=== PATIENT | female | born 1985 | race American Indian/Alaskan Native ===

== ENCOUNTER 2017-07-06 06:06 | Emergency (ER) | payer OTHER ==
[2017-07-06] MEDS ORDERED: FLEXERIL PO ONE (12:50)
[2017-07-06] MEDS ORDERED: NORCO 5/325 PO ONE (12:50)
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
[2017-07-06 17:49] VITALS: BP 120/76
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
== END 2017-07-06 17:13 | disposition home or self-care (01) ==
LOC: ED 06:06
DX: S16.1XXA Strain of muscle, fascia and tendon at neck level, initial encounter (principal); M54.6 Pain in thoracic spine; F17.200 Nicotine dependence, unspecified, uncomplicated; F12.10 Cannabis abuse, uncomplicated; Z79.82 Long term (current) use of aspirin; V43.52XA Car driver injured in collision with other type car in traffic accident, initial encounter; Y93.89 Activity, other specified; Y92.89 Other specified places as the place of occurrence of the external cause; Y99.8 Other external cause status
CPT/HCPCS: 72040; 72072; 72125